=== PATIENT | female | born 1975 | race Caucasian/White ===

== ENCOUNTER 2024-12-02 07:36 | Outpatient (CLI) | payer OTHER, SELFPAY ==
--- NOTE | 2024-12-02 08:15 | CRLHL7_ITS ---
For Patients: As a result of the Century Cures Act, medical imaging exams and procedure reports are released immediately into your electronic medical record. You may view this report before your referring provider. If you have questions, please contact your health care provider. Indication: Right hip pain Procedure : Informed consent was obtained. The site was marked. Time-out was performed. The skin of the right hip was cleansed with ChloraPrep. A sterile drape was placed. 8 cc of 1 percent lidocaine was administered for superficial anesthesia. Subsequently a 22 gauge spinal needle was introduced into the right hip joint under intermittent fluoroscopic guidance. Injection of 2 cc nonionic Omnipaque 240 contrast confirmed intra-articular location. Subsequently 11 cc of dilute gadolinium were injected. The needle was removed and hemostasis achieved with direct pressure. A dressing was placed. The patient tolerated the procedure well without immediate complication and was immediately sent to MRI for imaging. Total fluoroscopy time 21 seconds. Impression: Successful fluoroscopically guided right hip arthrogram for MRI. Dictated by Rob Ochoa MD @ 12/02/2024 10:15:27 AM (Electronically Signed)
--- NOTE | 2024-12-02 09:15 | CRLHL7_ITS ---
For Patients: As a result of the Century Cures Act, medical imaging exams and procedure reports are released immediately into your electronic medical record. You may view this report before your referring provider. If you have questions, please contact your health care provider. EXAM: MRI OF THE RIGHT HIP, ARTHROGRAM CLINICAL INDICATION: Hip pain. COMPARISON PLAIN FILMS: None. COMPARISON CROSS-SECTIONAL IMAGING STUDIES: None. TECHNICAL: Axial, sagittal and coronal PD FS small field of view images of the hip following intra-articular injection of dilute gadolinium contrast. Coronal T1 and PD FS images of the pelvis. FINDINGS: RIGHT HIP: Labrum: No labral tear or paralabral cyst. Articular Cartilage: Articular surfaces appear smooth without focal chondral defect or subchondral marrow changes. Joint Space: No effusion, synovitis or loose body. Proximal Femoral Morphology: No significant osseous bump. Femoral head-neck offset is within normal limits. Acetabular Morphology: No focal or global retroversion. No significant overcoverage. LEFT HIP: No effusion or subchondral changes. No paralabral cyst. OSSEOUS STRUCTURES: 1.7 cm benign enchondroma in the left. No evidence for avascular necrosis. MUSCULOTENDINOUS STRUCTURES AND BURSAE: Gluteus Minimus and Medius: No tendon tear or tendinopathy. No muscle atrophy or edema. Bursae: No trochanteric or iliopsoas bursitis. Common Hamstrings: No tendon tear or tendinopathy. Other: Tendons and myotendinous junctions are intact. No muscle atrophy or edema. SOFT TISSUES: No subcutaneous edema, hematoma or fluid collection. OTHER JOINTS: Sacroiliac joints are maintained. Pubic symphysis is maintained. INTRAPELVIC CONTENTS: No mass, fluid collection or adenopathy. No inguinal hernia. NEUROVASCULAR STRUCTURES: No abnormality involving the visualized proximal femoral or proximal sciatic nerves. No aneurysmal dilation of the visualized distal aorta or iliac arterial circulation. IMPRESSION: 1. The right hip is unremarkable. 2. Benign enchondroma in the left femoral head. Dictated by Wyatt Fischer MD @ 12/03/2024 8:41:11 AM (Electronically Signed)
== END 2024-12-02 07:37 | disposition home or self-care (01) ==
PROVIDERS: PCP Family Medicine; Visit Provider Family Medicine
DX: M25.551 Pain in right hip (principal)
CPT/HCPCS: 27093; 73525; 73722; 77002; A9575; Q9966